=== PATIENT | female | born 1940 | race Caucasian/White ===

== ENCOUNTER 2020-09-20 13:06 | Outpatient (CLI) | payer MEDICARE ==
[2020-01-20 15:44] LABS: SARS-CoV-2 MS2 Positive; SARS-CoV-2 N Gene Negative; SARS-CoV-2 S Gene Negative; SARS-CoV-2 by NAA Not Detected (NotDetected); SARS-CoV-2 orf1ab Negative
[2020-09-20 15:39] LABS: Anion Gap 14 mmol/L (10-20); BUN (Urea Nitrogen) 21 mg/dL (9.8-20.1); Calc. Creatinine Clearance 0 mL/min (70-130); Calcium 9.1 mg/dL (7.8-10.44); Carbon Dioxide 25 mmol/L (23-31); Chloride 101 mmol/L (98-107); Glucose 75 mg/dL (83-110); Potassium 4.8 mmol/L (3.5-5.1); Sodium 135 mmol/L (136-145)
[2020-09-20 16:59] LABS: Hemoglobin 12.7 g/dL (12.0-15.5); Mean Corpuscular HGB CONC 32.2 g/dL (32.0-36.0); Mean Corpuscular Hemoglobin 29.4 pg (27.0-33.0); Mean Corpuscular Volume 91.2 fl (81.6-98.3); Mean Platelet Volume 11.1 fl (7.4-10.4); Platelet Count 194 10x3/uL (150-450); RBC Distribution Width 13.6 % (11.5-14.5); Red Blood Cell (RBC) Count 4.32 10x6/uL (3.90-5.03); White Blood Cell (WBC) Count 6.2 10x3/uL (3.5-10.5)
[2020-09-21 06:59] LABS: SARS-CoV-2 PCR by NAA Not Detected (NotDetected)
== END 2020-09-20 13:07 | disposition home or self-care (01) ==
LOC: CSHLAB 13:06
PROVIDERS: ATTEND Internal Medicine Cardiovascular Disease
DX: Z01.812 Encounter for preprocedural laboratory examination (principal); Z20.822 Contact with and (suspected) exposure to COVID-19; K40.90 Unilateral inguinal hernia, without obstruction or gangrene, not specified as recurrent
CPT/HCPCS: 80048; 85027; 87635; U0003; U0005

== ENCOUNTER 2020-09-23 06:41 | Day surgery (SDC) | payer MEDICARE ==
[2020-09-22 10:58] VITALS: BMI 16.9
[2020-09-23] MEDS ORDERED: Bupivacaine PF 0.5% 30 ML VIAL ONE (08:52)
[2020-09-23] MEDS ORDERED: EPINEPHrine 1 MG/ML AMP ONE (08:52)
[2020-09-23] MEDS ORDERED: Lidocaine 1% MPF 2 ML VIAL ONE (09:15)
[2020-09-23] MEDS ORDERED: PROPOFOL 200 MG/20 ML VIAL IV ONE (10:34)
[2020-09-23] MEDS ORDERED: Midazolam HCl 2 mg/2 ml Vial FS ONE (10:35)
[2020-09-23] MEDS ORDERED: Fentanyl 100 MCG/2 ML VIAL SLOW IVP ONE (10:35)
[2020-09-23] MEDS ORDERED: Ondansetron PF 4 MG/2 ML Vial IVP ONE (10:59)
[2020-09-23] MEDS ORDERED: Glycopyrrolate 0.2 MG/ML 5 ML SYRINGE FS ONE (11:00)
[2020-09-23] MEDS ORDERED: Dexamethasone 4 mg/ml Vial SLOW IVP ONE (11:00)
[2020-09-23] MEDS ORDERED: Lidocaine 1% PF 5 ML VIAL FS ONE (11:00)
[2020-09-23] MEDS ORDERED: HYDROcodone/Acetaminophen 5/325 mg Tablet PO PRN (11:37)
[2020-09-23] MEDS ORDERED: Morphine 2 MG/ML VIAL FS ONE ×2 (11:41→11:56)
== END 2020-09-23 13:25 | disposition home or self-care (01) ==
LOC: CSHSDC 06:41
PROVIDERS: ATTEND Surgery
PROC: 0YU54JZ Supplement Right Inguinal Region with Synthetic Substitute, Percutaneous Endoscopic Approach (ICD-10-PCS; principal; 2020-09-23)
DX: K40.90 Unilateral inguinal hernia, without obstruction or gangrene, not specified as recurrent (principal)
CPT/HCPCS: J0171; J0690; J1100; J2250; J2270; J2405; J2704; J3010; S0020

== ENCOUNTER 2024-06-19 11:21 | Outpatient (CLI) | payer MEDICARE | END 2024-06-19 11:22 | disposition home or self-care (01) | LOC: CSHMAMMO 11:21 | PROVIDERS: ATTEND Nurse Practitioner Family | DX: Z12.31 Encounter for screening mammogram for malignant neoplasm of breast (principal) | CPT/HCPCS: 77063; 77067 ==